=== PATIENT | male | born 1960 | race Caucasian/White ===

== ENCOUNTER → 2025-03-10 09:58 | Outpatient (BNVA) | payer MEDICARE, OTHER, SELFPAY | PROVIDERS: PCP Nurse Practitioner Adult Health; Referring Provider Nurse Practitioner Adult Health; Visit Provider Surgery | DX: K40.90 Unilateral inguinal hernia, without obstruction or gangrene, not specified as recurrent (principal) | CPT/HCPCS: 99213 ==

== ENCOUNTER → 2025-05-24 13:01 | Outpatient (BNVA) | payer MEDICARE, OTHER, SELFPAY | PROVIDERS: PCP Nurse Practitioner Adult Health; Referring Provider Student in an Organized Health Care Education/Training Program; Visit Provider Nurse Practitioner Gerontology | DX: Z76.89 Persons encountering health services in other specified circumstances (principal); Z87.438 Personal history of other diseases of male genital organs; Z80.52 Family history of malignant neoplasm of bladder; R97.20 Elevated prostate specific antigen [PSA] | CPT/HCPCS: 99215; 81002 ==